=== PATIENT | male | born 1955 | race African-American/Black ===

== ENCOUNTER 2017-09-29 05:20 | Emergency (ER) | payer OTHER ==
[~2017-09-29] VITALS: Ht 172.7 cm; Wt 78.0 kg
[2017-09-29 05:47] VITALS: BP 171/101
== END 2017-09-29 11:13 | disposition left against medical advice (07) ==
LOC: ER 05:20
DX: E16.2 Hypoglycemia, unspecified (principal); R42 Dizziness and giddiness; Z53.21 Procedure and treatment not carried out due to patient leaving prior to being seen by health care provider
CPT/HCPCS: 82962